=== PATIENT | female | born 1935 | race African-American/Black ===

== ENCOUNTER 2016-06-29 10:31 | Observation (INO) | payer MEDICARE ==
[~2016-06-29] VITALS: Ht 152.4 cm; Wt 65.0 kg
[2016-06-29] MEDS ORDERED: HEPARIN SODIUM - IV 10,000 UNITS/10 ML VIAL ONE ×3 (11:12→15:41)
[2016-06-29] MEDS ORDERED: RANI150T PO (11:21)
[2016-06-29] MEDS ORDERED: ZOCO40TA PO (11:21)
[2016-06-29] MEDS ORDERED: AMLO10TA2 PO (11:21)
[2016-06-29] MEDS ORDERED: CINA30 PO (11:21)
[2016-06-29] MEDS ORDERED: GLIP5TAB8 PO (11:21)
[2016-06-29] MEDS ORDERED: WARF-58 PO (11:21)
[2016-06-29] MEDS ORDERED: METO25TA3 PO (11:21)
[2016-06-29] MEDS ORDERED: CLON0.1T PO (11:21)
[2016-06-29] MEDS ORDERED: PROT40TA PO (11:21)
[2016-06-29] MEDS ORDERED: GABA100C4 PO (11:21)
[2016-06-29] MEDS ORDERED: LEVO100T5 PO (11:21)
[2016-06-29] MEDS ORDERED: FERR150C PO (11:21)
[2016-06-29 11:22] VITALS: BP 127/69; PULSE 62; RESP 18; TEMP 97.8; O2SAT 97
[2016-06-29] MEDS ORDERED: BUPIVACAINE/EPINEPHRINE 0.5% PF 30 ML VIAL ONE ×2 (11:25→12:21)
--- NOTE | 2016-06-29 11:43 | HHI.HP ---
History of Present Illness Chief Complaint: ESRD, need for HD access History of Present Illness 81 yo female with ESRD, need for HD access, currently getting HD via R chest catheter TTS. H/o L UE AVF that thrombosed and was never used. Has a history of CVA with R sided weakness but the patient has ability to perform many ADLs Past/Family/Social History Past Medical History HTN DM ESRD hypercholesterolemia Home Medications Reported Medications Warfarin 3 Mg Tab3.5 Mg PO DAILY #30 TAB Ref 0 06/29/16 Polysaccharide Iron Complex (Ferrex 150)150 Mg Cap1 Cap PO BID 06/29/16 Simvastatin (Zocor)40 Mg Tab40 Mg PO DAILY #30 TAB Ref 0 06/29/16 Ranitidine 150 Mg [id number] Mg PO BID #60 TAB Ref 0 06/29/16 Pantoprazole (Protonix)40 Mg Tab40 Mg PO DAILY #30 TAB Ref 0 06/29/16 Metoprolol Tartrate 25 Mg Tab25 Mg PO DAILY #30 TAB Ref 0 06/29/16 Levothyroxine 100 Mcg [id number] Mcg PO DAILY #30 TAB Ref 0 06/29/16 Glipizide 5 Mg Tab5 Mg PO BIDAC #60 TAB Ref 0 Take 30 minutes before a meal 06/29/16 Gabapentin 100 Mg [id number] Mg PO TID #90 CAP Ref 0 06/29/16 Clonidine 0.1 Mg Tab0.1 Mg PO TID #60 TAB Ref 0 06/29/16 Cinacalcet (Sensipar)30 Mg Tab40 Mg PO HS #30 TAB Ref 0 06/29/16 Amlodipine 10 Mg Tab10 Mg PO DAILY #30 TAB Ref 0 06/29/16 Coded Allergies: No Known Allergies (Unverified , 06/29/16) Review of Systems Constitutional: COMPLAINS OF: Weight gain, Dizziness, DENIES: Fever, Chills Ears, nose, mouth, throat: COMPLAINS OF: Nasal discharge Respiratory: DENIES: Shortness of breath Physical Exam Vitals/I&O Date Time Temp Pulse Resp B/P Pulse Ox O2 Delivery O2 Flow Rate FiO2 06/29/16 11:22 97.8 62 18 127/69 97 Neuro: conversant but somnolent HEENT: NC/AT Neck: no JVD Heart: reg rate, no M Lungs: clear B Abdomen: NT Vascular: R UE with palpable radial pulse Extremities: no incisions R UE Diminished ROM R UE from CVA, no acute change Assessment and Plan Plan ESRD, need for HD access plan R UE access, likely brach-ax Will admit post-op for HD tomorrow Regulo Ricks MD Jun 29, 2016 11:43
[2016-06-29] MEDS ORDERED: HYDROmorphone HCL 2 MG TAB PO PRN (11:45)
[2016-06-29 11:47] LABS: AUTOMATED NEUTROPHIL # 2.3 TH/MM3 (1.8-7.7); BASOPHIL % 0.3 % (0.0-2.0); EOSINOPHIL # 0.2 TH/MM3 (0-0.4); EOSINOPHIL % 4.7 % (0.0-4.0); HEMATOCRIT 30.6 % (35.0-46.0); HEMO FLAGS DIFF FINAL; LYMPH % 33.3 % (9.0-44.0); LYMPHOCYTE # 1.7 TH/MM3 (1.0-4.8); MEAN CELL VOLUME 89.5 FL (80.0-100.0); MEAN CORPUSCULAR HEMOGLOBIN 30.5 PG (27.0-34.0); MEAN CORPUSCULAR HGB CONC 34.1 % (32.0-36.0); MONO % 16.8 % (0.0-8.0); NEUT % 44.9 % (16.0-70.0); PLATELET COUNT 141 TH/MM3 (150-450); RED BLOOD COUNT 3.42 MIL/MM3 (4.00-5.30); RED CELL DISTRIBUTION WIDTH 15.2 % (11.6-17.2); WHITE BLOOD COUNT 5.1 TH/MM3 (4.0-11.0)
[2016-06-29 11:57] LABS: INTERNATIONAL NORMALIZED RATIO 1.1 RATIO
[2016-06-29] MEDS ORDERED: ONDANSETRON HCL 4 MG/2 ML VIAL IV PUSH ONE (12:00)
[2016-06-29] MEDS ORDERED: NEOSTIGMINE 3 MG/3 ML SYR IV ONE (12:00)
[2016-06-29] MEDS ORDERED: ePHEDrine/NS 25 MG/5 ML SYR IV ONE (12:00)
[2016-06-29] MEDS ORDERED: SODIUM CHLOR 0.9% 250 ML INJ 250 ML IV ONE (12:00)
[2016-06-29] MEDS ORDERED: PROTAMINE SULFATE 50 MG/5 ML VIAL IV ONE (12:00)
[2016-06-29] MEDS ORDERED: PROPOFOL 200 MG/20 ML AMP IV ONE (12:00)
[2016-06-29 12:06] LABS: BICARBONATE 29.9 MEQ/L (21.0-32.0); POTASSIUM 4.2 MEQ/L (3.5-5.1)
[2016-06-29] MEDS ORDERED: VANCOMYCIN HCL 1000 MG VIAL ONE (12:19)
--- NOTE | 2016-06-29 13:55 | HHI.PR ---
Immediate Post Op Note Procedure Date: Jun 29, 2016 Pre Op Diagnosis: ESRD, need for HD access Post Op Diagnosis: ESRD, need for HD access Surgeon: Regulo Ricks Automobile Upholsterer Apprentice(s): none Procedure: R brach-ax with Artegraft Findings: 3mm artery, 4mm vein Additional Information: + thrill in AVG and Doppler radial signal R UE after AVF creation Complications: none apparent Specimen(s) removed: none Estimated blood loss: 30mL Anesthesia: General Drains: None Fluids: 450 mL IVF Patient to: PACU Patient Condition: Good Implant/Devices: SEE IMPLANT LOG (if applicable) Date/Time of Procedure: SEE SURGICAL CARE RECORD Regulo Ricks MD Jun 29, 2016 13:55
[2016-06-29] MEDS: cloNIDine HCL 0.1 MG TAB PO SCH ×2 (14:00→18:05)
[2016-06-29] MEDS ORDERED: DO NOT ADM ANY ANTICOAGULANT DRUGS PRN (14:15)
[2016-06-29] MEDS: GABAPENTIN 100 MG CAP PO SCH (15:00)
[2016-06-29 18:00] VITALS: BP 108/73; PULSE 81; RESP 20; TEMP 96.1; O2SAT 94
[2016-06-29 19:22] VITALS: PULSE 76
[2016-06-29 20:00] VITALS: BP 108/63; PULSE 77; PULSE 78; RESP 16; TEMP 98.5; O2SAT 96
--- NOTE | 2016-06-29 20:17 | EKG ---
Date Performed: 06/29/2016 Time Performed: 11:29:13 PTAGE: 81 years EKG: Sinus rhythm WITH FIRST DEGREE AV BLOCK WITH OCCASIONAL ECTOPIC PREMATURE COMPLEXES NONSPECIFIC T-WAVE ABNORMALIT Y ABNORMAL ECG NO PREVIOUS TRACING DOCTOR: Cesar Almendarez Interpretating Date/Time 06/29/2016 20:16:38
[2016-06-29] MEDS: FAMOTIDINE 20 MG TAB PO SCH (20:27)
[2016-06-29] MEDS ORDERED: SODIUM CHLOR 0.9% 1000 ML INJ 1,000 ML IV PRN ×3 (20:42)
[2016-06-29] MEDS ORDERED: ACETAMINOPHEN 325 MG TAB PO PRN (20:45)
[2016-06-29] MEDS ORDERED: SODIUM CHLORIDE 0.9% FLUSH 10 ML FLUSH IV FLUSH PRN (20:45)
[2016-06-29] MEDS ORDERED: cloNIDine HCL 0.1 MG TAB PO PRN (20:45)
[2016-06-29] MEDS ORDERED: NITROGLYCERIN 0.4 MG SL 25 TABS/BTL SL PRN (20:45)
[2016-06-29] MEDS ORDERED: ALBUMIN HUMAN 25% 25 GM/100 ML BAGP IV PRN (20:45)
[2016-06-29] MEDS ORDERED: diphenhydrAMINE HCL 25 MG CAP PO PRN (20:45)
[2016-06-29] MEDS ORDERED: ONDANSETRON HCL 4 MG/2 ML VIAL IV PRN (20:45)
[2016-06-29] MEDS ORDERED: HEPARIN SODIUM - IV 10,000 UNITS/10 ML VIAL PRN (20:45)
[2016-06-29] MEDS ORDERED: GELATIN 12 MM/7 MM FOAM TOP PRN (20:45)
[2016-06-29] MEDS ORDERED: HEPARIN SODIUM - IV 10,000 UNITS/10 ML VIAL IVF PRN (20:45)
[2016-06-29] MEDS ORDERED: MANNITOL 12.5 GM/50 ML VIAL IV PRN (20:45)
[2016-06-29] MEDS ORDERED: GENTAMICIN SULFATE (DIALYSIS USE ONLY) 20 MG/2 ML VIAL IV PRN (20:45)
[2016-06-29] MEDS ORDERED: EPOETIN ALFA 10,000 UNITS/ML VIAL IV PRN (20:45)
[2016-06-29] MEDS ORDERED: CINACALCET HYDROCHLORIDE 30 MG TAB PO SCH (21:00)
[2016-06-30] VITALS: BP 100/55; PULSE 87; RESP 16; TEMP 99.9; O2SAT 97
[2016-06-30 04:00] VITALS: BP 112/57; PULSE 88; RESP 16; TEMP 99.5; O2SAT 96
[2016-06-30] MEDS ORDERED: LEVOTHYROXINE SODIUM 100 MCG TAB PO SCH (06:00)
--- NOTE | 2016-06-30 06:45 | MB ---
cc: SULEMA BENAVIDES MD DATE OF CONSULTATION 06/29/2016 REASON FOR CONSULTATION End-stage renal disease on hemodialysis, for management. HISTORY OF PRESENT ILLNESS This is a very pleasant 81-year-old female with past medical history of hypertension, cerebrovascular accident with right-sided weakness, history of end-stage renal disease on hemodialysis three times per week, hypothyroidism who was admitted for the creation of right arm A-V fistula. The patient has been on hemodialysis since July of last year and she is getting dialysis through the [facility]. She has been getting dialysis in [place] and following with Dr. Tristen Smalls. She came in here because for creation of right arm A-V fistula. She has right arm A-V graft and the surgery was done and she has right brachial-axillary A-V graft done. The patient denies any shortness of breath. She has mild pain at the site of surgery. No chest pain, no nausea or vomiting. PAST MEDICAL HISTORY 1. Hypertension. 2. Cerebrovascular accident. 3. Hypothyroidism. 4. End-stage renal disease on hemodialysis. PAST SURGICAL HISTORY Previous history of A-V fistula surgery. REVIEW OF SYSTEMS There is no history of fever. No sore throat. No headache, dizziness or blurring of vision. No shortness of breath or chest pain. No palpitation. No nausea or vomiting. SOCIAL HISTORY History is negative for smoking or alcoholism. FAMILY HISTORY Noncontributory. ALLERGIES She has no known drug allergies. MEDICATIONS CURRENTLY 1. Famotidine 10 mg b.i.d. 1. Glipizide 5 mg b.i.d. 2. Norvasc 10 mg once a day. 3. Neurontin 100 mg once a day. 4. Metoprolol 25 mg once a day. 5. Pravachol 80 mg daily. 6. Synthroid 100 mcg once per day. 7. Cinacalcet 30 mg q.h.s. 8. Heparin 5000 units subcu q. 8 hours. 9. Clonidine 0.1 mg t.i.d. 10. Roxicodone as needed. 11. Dilaudid as needed. PHYSICAL EXAMINATION GENERAL: The patient is awake, alert. She is not in acute distress. VITAL SIGNS: Last blood pressure 108/63. Her blood pressure has been on the lower side with systolic and the 90s. Temperature 98.5, oxygen saturation 96%. HEENT: Pupils equally reacting to light. Nonicteric sclerae. Conjunctivae normal. NECK: Supple. JVD is not elevated. LUNGS: The patient has bilateral good air entry with occasional wheezing. HEART: S1, S2. Regular rhythm. ABDOMEN: Distended, soft, lax. There is no tenderness. Bowel sounds positive. EXTREMITIES: There is no edema in the legs. The right upper arm has a good bruit. INVESTIGATIONS WBC count is 5.9, hemoglobin 10.4, platelet of 141. Sodium 142, potassium 4.2, chloride 104, bicarb 29.9, BUN 28, creatinine 5.1, glucose 125, calcium is 8.5. INR is 1.1. There is no imaging studies done. ASSESSMENT AND PLAN 1. Post right upper arm A-V graft. 2. Hypertension 3. End-stage renal disease on hemodialysis. 4. Anemia. 5. History of cerebrovascular accident. The patient had hemodialysis done yesterday. She is on regular dialysis on Tuesdays, and Saturdays. I will arrange for her hemodialysis in the morning and give her Epogen with the dialysis and remove around 2 liters. Post-dialysis if the patient is stable and agreed by Surgery, then she will be discharged and will follow with Dr. Tristen Smalls and continue to get the dialysis at her center. Thank you for the consultation. Sulema Benavides MD AQJ/ZAIRE /8:42 PM /6:29 AM
[2016-06-30] MEDS ORDERED: glipiZIDE 5 MG TAB PO SCH (07:00)
[2016-06-30 07:50] VITALS: BP 112/61; PULSE 80; RESP 20; TEMP 99.1; O2SAT 96
[2016-06-30 08:03] VITALS: PULSE 80
[2016-06-30 08:09] VITALS: O2SAT 94
[2016-06-30] MEDS: FAMOTIDINE 20 MG TAB PO SCH (09:00)
[2016-06-30] MEDS ORDERED: METOPROLOL TARTRATE 25 MG TAB PO SCH (09:00)
[2016-06-30] MEDS: GABAPENTIN 100 MG CAP PO SCH (09:00)
[2016-06-30] MEDS ORDERED: PRAVASTATIN SOD 80 MG TAB PO SCH (09:00)
[2016-06-30] MEDS: cloNIDine HCL 0.1 MG TAB PO SCH ×2 (09:00→13:00)
[2016-06-30] MEDS ORDERED: PANTOPRAZOLE SOD 40 MG DELAYED RELEASE TAB PO SCH (09:00)
[2016-06-30] MEDS ORDERED: PERC5TAB12 PO (09:16)
--- NOTE | 2016-06-30 09:24 | PD.VS.DC ---
Discharge Summary Admission Date: Jun 29, 2016 at 11:47 Discharge Date: Jun 30, 2016 Admission Diagnosis: (1) ESRD (end stage renal disease) Discharge Diagnosis: (1) ESRD (end stage renal disease) Status: Chronic Brief History from admission 81 yo female with ESRD, need for HD access, currently getting HD via R chest catheter TTS. H/o L UE AVF that thrombosed and was never used. Has a history of CVA with R sided weakness but the patient has ability to perform many ADLs Procedure(s): R brach-ax with Artegraft Significant Findings GENERAL: A&O, GCS15 SKIN: Warm and dry. Incision to RUE intact with surgical glue, slight swelling noted Upper arm, no drainage or redness. CARDIOVASCULAR: RRR, +S1,S2 RESPIRATORY: Breath sounds equal and clear bilaterally. No accessory muscle use. +thrill noted near AVF Bilat radial pulse strong and palpable Laboratory Tests Test 06/29/16 11:25 Red Blood Count 3.42 MIL/MM3 (4.00-5.30) Hemoglobin 10.4 GM/DL (11.6-15.3) Hematocrit 30.6 % (35.0-46.0) Platelet Count 141 TH/MM3 (150-450) Monocytes (%) (Auto) 16.8 % (0.0-8.0) Eosinophils (%) (Auto) 4.7 % (0.0-4.0) Prothrombin Time 12.0 SEC (9.8-11.6) Blood Urea Nitrogen 28 MG/DL (7-18) Creatinine 5.10 MG/DL (0.50-1.00) Estimat Glomerular Filtration 10 ML/MIN (>89) Rate Random Glucose 125 MG/DL (74-106) Hospital Course: 81 yo female with ESRD, need for HD access, currently getting HD via R chest catheter TTS. H/o L UE AVF that thrombosed and was never used. Has a history of CVA with R sided weakness but the patient has ability to perform many ADLs Was admitted for AVF creation Has done well post op with out complications will f/u in 3w in our OPC Discharge Condition: Good Discharge Disposition: Discharge Home Discharge Instructions: Call the office to report any new concerns Do not apply any creams or ointments to L AVF incision Johann wrap RUE while swelling present Stefania HO [facility]/[place] [phone] Any questions or concerns: Call [facility] Heart and Vascular Surgery at [facility] [phone] Stefania Roe Jun 30, 2016 09:24
--- NOTE | 2016-06-30 10:06 | PD.VS.PN ---
Subjective POD #: 1 Procedure(s): R brach-ax with Artegraft Subjective/Hospital Course doing well, arm discomfort appropriate and controlled with po meds in HD at present Objective Vitals/I&O Date Time Temp Pulse Resp B/P Pulse Ox O2 Delivery O2 Flow Rate FiO2 06/30/16 08:09 94 21 06/30/16 07:50 99.1 80 20 112/61 96 06/30/16 04:00 99.5 88 16 112/57 96 06/30/16 00:00 99.9 87 16 100/55 97 06/29/16 20:00 77 06/29/16 20:00 98.5 78 16 108/63 96 06/29/16 19:22 76 06/29/16 18:00 96.1 81 20 108/73 94 06/29/16 16:32 97.9 71 16 95/60 99 Nasal Cannula 2 06/29/16 15:45 75 16 93/66 95 Nasal Cannula 2 06/29/16 15:30 73 16 92/60 95 Nasal Cannula 2 06/29/16 15:15 74 16 95/56 97 Nasal Cannula 2 06/29/16 15:00 77 16 91/64 96 Nasal Cannula 2 06/29/16 14:45 77 16 94/57 94 Nasal Cannula 2 06/29/16 14:30 81 16 106/65 95 Nasal Cannula 2 06/29/16 14:15 98.0 92 16 116/66 96 Nasal Cannula 2 06/29/16 11:22 97.8 62 18 127/69 97 Exam: R UE swollen but no hematomas + thrill + Dopper signal in wrist Laboratory Laboratory Tests Test 06/29/16 11:25 White Blood Count 5.1 Red Blood Count 3.42 Hemoglobin 10.4 Hematocrit 30.6 Mean Corpuscular Volume 89.5 Mean Corpuscular Hemoglobin 30.5 Mean Corpuscular Hemoglobin 34.1 Concent Red Cell Distribution Width 15.2 Platelet Count 141 Mean Platelet Volume 9.2 Neutrophils (%) (Auto) 44.9 Lymphocytes (%) (Auto) 33.3 Monocytes (%) (Auto) 16.8 Eosinophils (%) (Auto) 4.7 Basophils (%) (Auto) 0.3 Neutrophils # (Auto) 2.3 Lymphocytes # (Auto) 1.7 Monocytes # (Auto) 0.9 Eosinophils # (Auto) 0.2 Basophils # (Auto) 0.0 CBC Comment DIFF FINAL Differential Comment Prothrombin Time 12.0 Prothromb Time International 1.1 Ratio Sodium Level 142 Potassium Level 4.2 Chloride Level 104 Carbon Dioxide Level 29.9 Anion Gap 8 Blood Urea Nitrogen 28 Creatinine 5.10 Estimat Glomerular Filtration 10 Rate Random Glucose 125 Calcium Level 8.6 Blood Type O POSITIVE Antibody Screen NEGATIVE Blood Bank Comment Assessment and Plan Assessment: (1) ESRD (end stage renal disease) Status: Chronic Plan D/C after HD Ok to ÁNGELA wrap arm for comfort Will maty f/u in 1 week to re-assess swelling Regulo Ricks MD Jun 30, 2016 10:06
[2016-06-30 10:21] LABS: HEMATOCRIT 28.7 % (35.0-46.0); MEAN CELL VOLUME 90.2 FL (80.0-100.0); MEAN CORPUSCULAR HEMOGLOBIN 30.2 PG (27.0-34.0); MEAN CORPUSCULAR HGB CONC 33.5 % (32.0-36.0); PLATELET COUNT 118 TH/MM3 (150-450); RED BLOOD COUNT 3.18 MIL/MM3 (4.00-5.30); RED CELL DISTRIBUTION WIDTH 15.4 % (11.6-17.2); REVIEW FLAG FINAL; WHITE BLOOD COUNT 6.6 TH/MM3 (4.0-11.0)
[2016-06-30 10:55] LABS: BICARBONATE 28.1 MEQ/L (21.0-32.0); POTASSIUM 4.3 MEQ/L (3.5-5.1)
[2016-06-30 12:50] VITALS: BP 113/66; PULSE 101; RESP 20; TEMP 98.4; O2SAT 94
[2016-06-30] MEDS ORDERED: HEPARIN SODIUM - SQ 10,000 UNITS/ML VIAL SQ SCH (13:00)
--- NOTE | 2016-07-01 07:20 | MP ---
cc: REGULO RICKS MD DATE OF SURGERY 06/29/2016 PREOPERATIVE DIAGNOSIS End-stage renal disease needs dialysis access. POSTOPERATIVE DIAGNOSIS End-stage renal disease needs dialysis access. PROCEDURE Right brachial artery axillary vein arteriovenous graft with Artegraft (bovine pericardium). ATTENDING SURGEON Regulo Ricks MD ANESTHESIA General INDICATIONS Mrs. Hernadez is an 81 year-old lady who has end-stage renal disease currently dialyzing Monday, and Saturdays right tunnel and chest catheter. She has a previous left upper extremity access and no remaining suitable autogenous options. She is taken to the operating room for access creation because of the patient's contracture and thin skin. We would like to place a bovine carotid graft. DESCRIPTION OF PROCEDURE Informed consent was obtained from the patient. She was taken to the operating room, placed supine on the operating room table and appropriate time out was taken to ensure the patient's operative site and planned procedure. A gram of Vancomycin was initiated prior to the skin incision and will be discontinued after a single preop dose. Vancomycin was chosen because of the patient's end-stage renal disease. Everyone in the room agreed with the time out and we proceeded. An incision was made in the antecubital area, carried down through the subcutaneous tissue with electrocautery. The brachial artery was identified and dissected free for several centimeters. A separate incision was made in the axilla, carried down through the subcutaneous tissue with electrocautery. The axillary vein was identified and dissected free for several centimeters. A tunnel was then created between these two in a curved fashion and extending on the anterior surface of the upper arm. The Artegraft had been prepared in the standard fashion. It was flushed and marked for orientation and passed through the tunnel without difficulty. The patient was systemically heparinized with 3000 units of IV Heparin. Proximal and distal control of the brachial artery was obtained with profunda clamps and a longitudinal arteriotomy was made with an 11 blade and extended with [place] scissors. The Artegraft was cut to appropriate length, spatulated and sewn end-to-side with running 6-0 Prolene suture. At the conclusion, this was flushed and noted to be hemostatic. A clamp was placed was placed on the graft and the vein was controlled proximally and distally with Profunda clamps and a longitudinal venotomy was made with an 11 blade and extended with [place] scissors. The vein was spatulated and sewn end-to-side with running 5-0 Prolene suture. At the completion, it was flushed and noted to be hemostatic. The clamps were all released. There was a nice thrill in the fistula and a Doppler signal at rest. The heparin reversed with Protamine and the wounds were infiltrated with 0.5% Marcaine with epinephrine and then closed with 2-0 Polysorb, 3-0 Polysorb and 4-0 Monocryl. The sponge and needle counts were correct at the end of the case. I was present and scrubbed for the entire procedure. MD JONEL Arauz/KHALIF /1:59 PM /6:52 AM
== END 2016-06-30 14:07 | disposition home or self-care (01) ==
LOC: HSDC 10:31 → HSDI 11:47 → HOCA 17:54
PROVIDERS: ADMIT Surgery; ATTEND Surgery
DX: N18.6 End stage renal disease (principal); E11.22 Type 2 diabetes mellitus with diabetic chronic kidney disease; I12.0 Hypertensive chronic kidney disease with stage 5 chronic kidney disease or end stage renal disease; Z99.2 Dependence on renal dialysis; E03.9 Hypothyroidism, unspecified; D64.9 Anemia, unspecified; I44.0 Atrioventricular block, first degree
CPT/HCPCS: 01844; 36821; 76937; 80048; 85025; 85027; 85610; 86850; 86900; 86901; 93005; 96374; 96375; G0257; G0378; J1644; J2405; J2710; J2720; J3010; J3370; J7050; 90935

== ENCOUNTER 2016-10-10 10:48 | Day surgery (SDC) | payer MEDICARE ==
[~2016-10-10] VITALS: Ht 154.9 cm; Wt 64.5 kg
[~2016-10-10 10:48] MED LIST: AMLO10TA2 PO; CINA30 PO; CLON0.1T PO; FERR150C PO; GABA100C4 PO; GLIP5TAB8 PO; LEVO100T5 PO; METO25TA3 PO; PERC5TAB12 PO; PROT40TA PO; RANI150T PO; WARF-58 PO; ZOCO40TA PO
[2016-10-10] MEDS ORDERED: SODIUM CHLORIDE 0.9% FLUSH 10 ML FLUSH IV FLUSH PRN ×2 (11:30)
[2016-10-10] MEDS ORDERED: SODIUM CHLOR 0.9% 1000 ML INJ 1,000 ML IV SCH (12:00)
[2016-10-10 13:02] LABS: AUTOMATED NEUTROPHIL # 4.1 TH/MM3 (1.8-7.7); BASOPHIL % 0.4 % (0.0-2.0); EOSINOPHIL # 0.3 TH/MM3 (0-0.4); EOSINOPHIL % 3.9 % (0.0-4.0); HEMATOCRIT 34.8 % (35.0-46.0); LYMPH % 31.7 % (9.0-44.0); LYMPHOCYTE # 2.4 TH/MM3 (1.0-4.8); MEAN CELL VOLUME 91.9 FL (80.0-100.0); MEAN CORPUSCULAR HEMOGLOBIN 30.6 PG (27.0-34.0); MEAN CORPUSCULAR HGB CONC 33.3 % (32.0-36.0); MONO % 9.5 % (0.0-8.0); NEUT % 54.5 % (16.0-70.0); PLATELET COUNT 178 TH/MM3 (150-450); RED BLOOD COUNT 3.79 MIL/MM3 (4.00-5.30); RED CELL DISTRIBUTION WIDTH 16.1 % (11.6-17.2); WHITE BLOOD COUNT 7.5 TH/MM3 (4.0-11.0)
[2016-10-10 13:14] LABS: HEMO FLAGS AUTO DIFF
[2016-10-10 13:15] LABS: SCAN/DIFF AUTO DIFF CONFIRMED
[2016-10-10 13:21] LABS: ANION GAP 10 MEQ/L (5-15); AST (GOT) 17 U/L (15-37); BICARBONATE 24.8 MEQ/L (21.0-32.0); BLOOD UREA NITROGEN 41 MG/DL (7-18); CHLORIDE 104 MEQ/L (98-107); GLOMERULAR FILTRATION RATE 10 ML/MIN (>89); POTASSIUM 4.1 MEQ/L (3.5-5.1); SODIUM (NA) 139 MEQ/L (136-145)
[2016-10-10 13:25] LABS: ALKALINE PHOSPHATASE 128 U/L (45-117); ALT (GPT) 25 U/L (10-53); TOTAL BILIRUBIN ADULT 0.6 MG/DL (0.2-1.0)
--- NOTE | 2016-10-10 15:39 | HHI.HP ---
History of Present Illness Chief Complaint: R arm swelling History of Present Illness 81 yo female with ESRD, s/p R UE AVG with bovine pericardium and now with R arm swelling AVG works well for HD Had R catheter removed Past/Family/Social History Past Medical History ESRD HTN CVA DM XOL thyroid dz Past Surgical History AVG 06/29/16 Social History nonsmoker Family History [place] Home Medications Active Scripts Oxycodone-Acetaminophen (Percocet)5-325 mg Tab1 Tab PO Q6H PRN (PAIN) #20 TAB Ref 0 Prov:BhupinderStefania Gilmer SURVEY CREW CHIEF 06/30/16 Reported Medications Warfarin 3 Mg Tab3.5 Mg PO DAILY #30 TAB Ref 0 06/29/16 Polysaccharide Iron Complex (Ferrex 150)150 Mg Cap1 Cap PO BID 06/29/16 Simvastatin (Zocor)40 Mg Tab40 Mg PO DAILY #30 TAB Ref 0 06/29/16 Ranitidine 150 Mg Lcj050 Mg PO BID #60 TAB Ref 0 06/29/16 Pantoprazole (Protonix)40 Mg Tab40 Mg PO DAILY #30 TAB Ref 0 06/29/16 Metoprolol Tartrate 25 Mg Tab25 Mg PO DAILY #30 TAB Ref 0 06/29/16 Levothyroxine 100 Mcg [id number] Mcg PO DAILY #30 TAB Ref 0 06/29/16 Glipizide 5 Mg Tab5 Mg PO BIDAC #60 TAB Ref 0 Take 30 minutes before a meal 06/29/16 Gabapentin 100 Mg Orj282 Mg PO TID #90 CAP Ref 0 06/29/16 Cinacalcet (Sensipar)30 Mg Tab40 Mg PO HS #30 TAB Ref 0 06/29/16 Amlodipine 10 Mg Tab10 Mg PO DAILY #30 TAB Ref 0 06/29/16 Discontinued Reported Medications Clonidine 0.1 Mg Tab0.1 Mg PO TID #60 TAB Ref 0 06/29/16 Coded Allergies: No Known Allergies (Unverified , 06/29/16) Review of Systems ROS Limitations: Altered Mental Status Physical Exam Neuro: alert, somnolent but baseline R arm contracted, baseline HEENT: NC/AT Neck: no JVD Heart: reg rate Lungs: clear Abdomen: NT Vascular: R UE with + thrill and marked swelling Laboratory Tests Test 10/10/16 12:10 White Blood Count 7.5 Red Blood Count 3.79 Hemoglobin 11.6 Hematocrit 34.8 Mean Corpuscular Volume 91.9 Mean Corpuscular Hemoglobin 30.6 Mean Corpuscular Hemoglobin 33.3 Concent Red Cell Distribution Width 16.1 Platelet Count 178 Mean Platelet Volume 9.5 Neutrophils (%) (Auto) 54.5 Lymphocytes (%) (Auto) 31.7 Monocytes (%) (Auto) 9.5 Eosinophils (%) (Auto) 3.9 Basophils (%) (Auto) 0.4 Neutrophils # (Auto) 4.1 Lymphocytes # (Auto) 2.4 Monocytes # (Auto) 0.7 Eosinophils # (Auto) 0.3 Basophils # (Auto) 0.0 CBC Comment AUTO DIFF Differential Comment AUTO DIFF CONFIRMED Sodium Level 139 Potassium Level 4.1 Chloride Level 104 Carbon Dioxide Level 24.8 Anion Gap 10 Blood Urea Nitrogen 41 Creatinine 4.90 Estimat Glomerular Filtration 10 Rate Random Glucose 90 Calcium Level 9.3 Total Bilirubin 0.6 Aspartate Amino Transf 17 (AST/SGOT) Alanine Aminotransferase 25 (ALT/SGPT) Alkaline Phosphatase 128 Total Protein 7.4 Albumin 3.7 Assessment and Plan Plan R UE fistulogram and potential intervention Discussed with patient and daughter, agree with plan Regulo Ricks MD Oct 10, 2016 15:39
[2016-10-10] MEDS ORDERED: HEPARIN SODIUM - IV 10,000 UNITS/10 ML VIAL ONE (15:56)
--- NOTE | 2016-10-10 17:11 | HHI.PR ---
Immediate Post Op Note Procedure Date: Oct 10, 2016 Pre Op Diagnosis: R UE venous outflow stenosis Post Op Diagnosis: R UE venous outflow occlusion Surgeon: Regulo Ricks Linux Kernel Engineer(s): none Procedure: R UE fistulogram Findings: axillary vein occlusion Additional Information: no intervention performed Complications: none apparent Specimen(s) removed: none Estimated blood loss: 10mL Anesthesia: Other (none) Drains: None Patient to: Other (DOCU) Patient Condition: Good Date/Time of Procedure: SEE SURGICAL CARE RECORD Regulo Ricks MD Oct 10, 2016 17:11
[2016-10-10] MEDS ORDERED: IOHEXOL 350 MG/ML 100 ML BTL (for RAD DIAG) OTHER ONE (18:12)
--- NOTE | 2016-10-11 12:26 | MP ---
cc: REGULO RICKS MD DATE OF SURGERY: 10/11/2016 PREOPERATIVE DIAGNOSIS: Right upper extremity swelling, arteriovenous graft that is patent. POSTOPERATIVE DIAGNOSIS Right upper extremity swelling, arteriovenous graft that is patent. PROCEDURE Right upper right extremity fistulogram. SURGEON: Regulo Ricks MD. RN OPERATING ROOM: None. ANESTHESIA None. INDICATIONS Mrs. Hernadez is an 81 year old lady with a right upper extremity arteriovenous graft. She has arm swelling and has no problem using dialysis graft and she is taken to the operating room for a fistulogram potential endovascular intervention. DESCRIPTION Informed consent obtained from the patient. She was taken to the operating room and placed supine on the operating room table and an appropriate time out was taken, to ensure the patient denies any operative complaints at time of procedure. Antibiotics not necessary as this is a clean procedure without an implantation of any foreign object. Everyone in the room agreed to time out, we proceeded. Her right arm was prepped and draped and locally anesthetized with 1% lidocaine and 21 gauge micropuncture needle was used to access the fistula which was exchanged using Seldinger technique micropuncture sheath, which a fistulogram was obtained. A 0.025 Glidewire was introduced and the micropuncture sheath was obtained for a 4-Setswana sheath and then the glide an Berenstein catheter were used to attempt to recannulize the occluded axillary vein but these were all unsuccessful, we even tried to place a 6-Setswana, 25 cm sheath as back support, this was also unsuccessful. The wire and catheter sheath were removed. The area was held for hemostasis with the aide of a single 4-0 Prolene suture. There are no complications. I was present and scrubbed for the entire procedure. INTERPRETATION: The patient has a patent fistula with occluded axillary vein. The fistula fills the retrograde filling down the peripheral axillary vein and then collaterals reconstitute central veins. MD JONEL Arauz/kesha /5:27 PM /12:16 PM
== END 2016-10-10 18:39 | disposition home or self-care (01) ==
LOC: HCVO 10:48 → HDIC 10:50 → HCVO 18:39
PROVIDERS: ATTEND Surgery
DX: T82.848A Pain due to vascular prosthetic devices, implants and grafts, initial encounter (principal); I77.1 Stricture of artery; I12.0 Hypertensive chronic kidney disease with stage 5 chronic kidney disease or end stage renal disease; E11.22 Type 2 diabetes mellitus with diabetic chronic kidney disease; N18.6 End stage renal disease; Z79.01 Long term (current) use of anticoagulants; Z86.73 Personal history of transient ischemic attack (TIA), and cerebral infarction without residual deficits; Z99.2 Dependence on renal dialysis
CPT/HCPCS: 01916; 36901; 76937; 80053; 85025; C1769; C1893; J1644; J3010; Q9967; 75820

== ENCOUNTER 2016-10-11 12:57 | Inpatient (IN) | payer MEDICARE ==
[~2016-10-11] VITALS: Ht 154.9 cm; Wt 61.4 kg
[~2016-10-11 12:57] MED LIST changes: -CLON0.1T PO
[2016-10-17] MEDS ORDERED: CLON0.1T PO (11:52)
[2016-10-17] MEDS ORDERED: FOLI800T PO (11:52)
[2016-10-17 11:55] VITALS: BP 121/65; PULSE 62; RESP 16; TEMP 97; O2SAT 97
[2016-10-17] MEDS ORDERED: LACTATED RINGER'S 1000 ML IV PRN (12:00)
[2016-10-17] MEDS ORDERED: CHLORHEXIDINE GLUCONATE 2 % 1 PACK (2 CLOTHS) TOPICAL PRN (12:00)
[2016-10-17] MEDS ORDERED: PROPOFOL 200 MG/20 ML AMP IV ONE (12:00)
[2016-10-17] MEDS ORDERED: PHENYLEPH/NS 1000 MCG/10 ML SYR IV ONE (12:00)
[2016-10-17] MEDS ORDERED: INSULIN HUMAN REGULAR 1,000 UNITS/10 ML VIAL SQ PRN (12:00)
[2016-10-17] MEDS ORDERED: PROTAMINE SULFATE 50 MG/5 ML VIAL IV ONE (12:00)
[2016-10-17] MEDS ORDERED: CISATRACURIUM BESYLATE 20 MG/10 ML VIAL IV ONE (12:00)
[2016-10-17] MEDS ORDERED: SODIUM CHLOR 0.9% 250 ML INJ 250 ML IV ONE (12:00)
[2016-10-17] MEDS ORDERED: POVIDONE IODINE 5% (ANTISEPSIS KIT) 4 APPLICATIONS EACH NARE PRN (12:00)
[2016-10-17] MEDS ORDERED: SODIUM CHLORID 0.9% 500 ML IV PRN (12:00)
[2016-10-17] MEDS ORDERED: METOPROLOL TARTRATE 25 MG TAB PO PRN (12:00)
--- NOTE | 2016-10-17 12:33 | HHI.HP ---
History of Present Illness Chief Complaint: Swollen R UE History of Present Illness 81 yo female with ESRD, s/p R UE brach-ax with bovine pericardium. C/o debilitating arm swelling and a recent fistulogram showed axillary vein occlusion, not amenable to endovascular therapy. Past/Family/Social History Past Medical History ESRD CVOD w CVA with R UE dysfunction DM XOL HTN thyroid dz Past Surgical History R UE access Social History lives with daughter HD TTS, last on Sat Family History NC Home Medications Active Scripts Oxycodone-Acetaminophen (Percocet)5-325 mg Tab1 Tab PO Q6H PRN (PAIN) #20 TAB Ref 0 Prov:Stefania Roe LARD MIXER 06/30/16 Reported Medications Clonidine 0.1 Mg Tab0.1 Mg PO BID #60 TAB Ref 0 10/17/16 Folic Acid 800 Mcg [id number] Mcg PO DAILY Ref 0 10/17/16 Warfarin 3 Mg Tab3.5 Mg PO DAILY #30 TAB Ref 0 06/29/16 Polysaccharide Iron Complex (Ferrex 150)150 Mg Cap1 Cap PO BID 06/29/16 Simvastatin (Zocor)40 Mg Tab40 Mg PO DAILY #30 TAB Ref 0 06/29/16 Ranitidine 150 Mg [id number] Mg PO BID #60 TAB Ref 0 06/29/16 Metoprolol Tartrate 25 Mg Tab25 Mg PO DAILY #30 TAB Ref 0 06/29/16 Levothyroxine 100 Mcg [id number] Mcg PO DAILY #30 TAB Ref 0 06/29/16 Glipizide 5 Mg Tab5 Mg PO BIDAC #60 TAB Ref 0 Take 30 minutes before a meal 06/29/16 Gabapentin 100 Mg [id number] Mg PO DAILY #90 CAP Ref 0 06/29/16 Cinacalcet (Sensipar)30 Mg Tab40 Mg PO HS #30 TAB Ref 0 06/29/16 Amlodipine 10 Mg Tab10 Mg PO DAILY #30 TAB Ref 0 06/29/16 Discontinued Reported Medications Pantoprazole (Protonix)40 Mg Tab40 Mg PO DAILY #30 TAB Ref 0 06/29/16 Clonidine 0.1 Mg Tab0.1 Mg PO TID #60 TAB Ref 0 06/29/16 Coded Allergies: No Known Allergies (Unverified , 10/17/16) Review of Systems Constitutional: DENIES: Fever, Chills Physical Exam Vitals/I&O Date Time Temp Pulse Resp B/P Pulse Ox O2 Delivery O2 Flow Rate FiO2 10/17/16 11:55 97.0 62 16 121/65 97 Neuro: alert, oriented HEENT: NC/AT; anicteric sclera Neck: no JVD Heart: reg rate, no M Lungs: clear B Abdomen: NT Vascular: R UE edematous with AVF and + thrill Assessment and Plan Plan R UE access revision - interposition with PTFE discussed with patient and daughter (Ms. Arellano [phone]) and they understand. To OR Regulo Ricks MD Oct 17, 2016 12:33
[2016-10-17] MEDS ORDERED: DEXTROSE 50% IN WATER 50 ML VIAL(D50) IV PRN (12:45)
[2016-10-17] MEDS ORDERED: HYDROmorphone HCL 2 MG TAB PO PRN (12:45)
[2016-10-17] MEDS ORDERED: GLUCAGON 1 MG/ML VIAL OTHER PRN (12:45)
[2016-10-17] MEDS ORDERED: HEPARIN SODIUM - IV 10,000 UNITS/10 ML VIAL ONE ×2 (12:57→14:00)
[2016-10-17] MEDS ORDERED: THROMBIN (TOPICAL) 20,000 UNIT SPRAY KIT ONE (12:58)
[2016-10-17] MEDS ORDERED: VANCOMYCIN HCL 1000 MG VIAL ONE (12:58)
[2016-10-17 13:41] LABS: AUTOMATED NEUTROPHIL # 2.1 TH/MM3 (1.8-7.7); BASOPHIL % 0.7 % (0.0-2.0); EOSINOPHIL # 0.2 TH/MM3 (0-0.4); EOSINOPHIL % 4.5 % (0.0-4.0); HEMO FLAGS DIFF FINAL; LYMPH % 37.4 % (9.0-44.0); LYMPHOCYTE # 1.8 TH/MM3 (1.0-4.8); MEAN CELL VOLUME 91.6 FL (80.0-100.0); MEAN CORPUSCULAR HEMOGLOBIN 30.6 PG (27.0-34.0); MEAN CORPUSCULAR HGB CONC 33.4 % (32.0-36.0); MONO % 12.6 % (0.0-8.0); NEUT % 44.8 % (16.0-70.0); PLATELET COUNT 209 TH/MM3 (150-450); RED BLOOD COUNT 3.71 MIL/MM3 (4.00-5.30); WHITE BLOOD COUNT 4.8 TH/MM3 (4.0-11.0)
[2016-10-17 13:47] LABS: BICARBONATE 26.7 MEQ/L (21.0-32.0); POTASSIUM 3.6 MEQ/L (3.5-5.1)
[2016-10-17 13:52] LABS: INTERNATIONAL NORMALIZED RATIO 1.1 RATIO; PROTHROMBIN TIME - PATIENT 11.7 SEC (9.8-11.6)
[2016-10-17] MEDS ORDERED: PILL SPLITTER OTHER PRN (14:15)
[2016-10-17] MEDS ORDERED: BUPIVACAINE HCL PF 0.5% 30 ML VIAL ONE (14:33)
--- NOTE | 2016-10-17 15:16 | HHI.PR ---
Immediate Post Op Note Procedure Date: Oct 17, 2016 Pre Op Diagnosis: failing R UE AVF, central vein occlusion Post Op Diagnosis: failing R UE AVF, central vein occlusion Surgeon: Regulo Ricks Dough Scaler And Mixer(s): Jony Samayoa Procedure: R axillary vein to subclavian vein bypass (ringed 8mm PTFE) Findings: good thrill at conclusion + Doppler signal at end of case Complications: none apparent Specimen(s) removed: none Estimated blood loss: 50mL Anesthesia: General Drains: None Fluids: 250mL Patient to: PACU Patient Condition: Good Date/Time of Procedure: SEE SURGICAL CARE RECORD Regulo Ricks MD Oct 17, 2016 15:16
[2016-10-17] MEDS ORDERED: DO NOT ADM ANY ANTICOAGULANT DRUGS PRN (15:24)
[2016-10-17] MEDS ORDERED: *morphine SULFATE 8 MG/ML PERIprocedure ONLY ONE ×2 (15:26→15:42)
[2016-10-17] MEDS: INSULIN ASPART SUPPLEMENTAL SCALE SQ SCH ×2 (15:48→20:28)
--- NOTE | 2016-10-17 16:38 | RADRPT ---
EXAM DATE/TIME: 10/17/2016 15:36 [place] COMPARISON: No previous studies available for comparison. INDICATIONS : Left central line placement. MEDICAL HISTORY : None. SURGICAL HISTORY : None. ENCOUNTER: Initial ACUITY: 1 day PAIN SCORE: Non-responsive. LOCATION: Bilateral chest FINDINGS: A left neck central line is present which distends across the chest and then projects upward toward t he right clavicle, presumably within the right brachiocephalic vein. There is no evidence of pneumoth orax or other complication of placement. There is some linear rectal opacity in the left superhilar r egion and medial left apex is likely chronic. Minimal basilar parenchymal opacity may be some atelect asis. Cardiomediastinal contours are satisfactory. CONCLUSION: Malpositioned central line. No evidence of pneumothorax. Danny Nieto MD on October 17, 2016 at 16:35 Board Certified Radiologist. This report was verified electronically.
--- NOTE | 2016-10-17 18:11 | RADRPT ---
EXAM DATE/TIME: 10/17/2016 17:30 [place] COMPARISON: CHEST SINGLE AP, October 17, 2016, 15:36. INDICATIONS : Repositioning of central line. MEDICAL HISTORY : None. SURGICAL HISTORY : None. ENCOUNTER: Subsequent ACUITY: 1 day PAIN SCORE: Non-responsive. LOCATION: Bilateral chest FINDINGS: Heart size visualized. Tortuous aorta. No consolidation or effusion. No pneumothorax. CONCLUSION: 1. Cardiomegaly. Minimal basal atelectasis. Left central line tip in superior vena cava. Kleber Gavin MD on October 17, 2016 at 18:08 Board Certified Radiologist. This report was verified electronically.
[2016-10-17] MEDS ORDERED: SODIUM CHLOR 0.9% 1000 ML INJ 1,000 ML IV PRN ×3 (18:14)
[2016-10-17] MEDS ORDERED: ONDANSETRON HCL 4 MG/2 ML VIAL IV PRN (18:15)
[2016-10-17] MEDS ORDERED: MANNITOL 12.5 GM/50 ML VIAL IV PRN (18:15)
[2016-10-17] MEDS ORDERED: GELATIN 12 MM/7 MM FOAM TOP PRN (18:15)
[2016-10-17] MEDS ORDERED: NITROGLYCERIN 0.4 MG SL 25 TABS/BTL SL PRN (18:15)
[2016-10-17] MEDS ORDERED: SODIUM CHLORIDE 0.9% FLUSH 10 ML FLUSH IV FLUSH PRN (18:15)
[2016-10-17] MEDS ORDERED: diphenhydrAMINE HCL 25 MG CAP PO PRN (18:15)
[2016-10-17] MEDS ORDERED: EPOETIN ALFA 10,000 UNITS/ML VIAL IV PRN (18:15)
[2016-10-17] MEDS ORDERED: ALBUMIN HUMAN 25% 25 GM/100 ML BAGP IV PRN (18:15)
[2016-10-17] MEDS ORDERED: GENTAMICIN SULFATE (DIALYSIS USE ONLY) 20 MG/2 ML VIAL IV PRN (18:15)
[2016-10-17] MEDS ORDERED: HEPARIN SODIUM - IV 10,000 UNITS/10 ML VIAL IVF PRN (18:15)
[2016-10-17] MEDS ORDERED: ACETAMINOPHEN 325 MG TAB PO PRN (18:15)
[2016-10-17] MEDS ORDERED: cloNIDine HCL 0.1 MG TAB PO PRN (18:15)
[2016-10-17] MEDS ORDERED: HEPARIN SODIUM - IV 10,000 UNITS/10 ML VIAL PRN (18:15)
[2016-10-17 18:54] LABS: BICARBONATE 22.3 MEQ/L (21.0-32.0); POTASSIUM 3.8 MEQ/L (3.5-5.1)
[2016-10-17] MEDS: MORPHINE SULFATE 4 MG/ML INJ IV PRN (19:40)
[2016-10-17] MEDS: FAMOTIDINE 20 MG TAB PO SCH (20:27)
[2016-10-17] MEDS: cloNIDine HCL 0.1 MG TAB PO SCH (20:27)
[2016-10-17] MEDS: CINACALCET HYDROCHLORIDE 30 MG TAB PO SCH (20:27)
[2016-10-18] VITALS (14 sets, daily range): BP systolic 125–134; BP diastolic 68–87; PULSE 74–100; RESP 16–18; TEMP 98.5–99.5; O2SAT 93–97
[2016-10-18] MEDS: MORPHINE SULFATE 4 MG/ML INJ IV PRN ×2 (02:48→17:04)
--- NOTE | 2016-10-18 06:59 | PD.VS.PN ---
Subjective POD #: 1 Procedure(s): R axillary-subclavian vein bypass with 8mm PTFE Subjective/Hospital Course c/o pain in upper chest near incision but tolerable R UE less swollen already Objective Vitals/I&O Date Time Temp Pulse Resp B/P Pulse Ox O2 Delivery O2 Flow Rate FiO2 10/18/16 04:00 66 17 130/61 96 Room Air 10/18/16 00:00 67 17 130/76 98 Room Air 10/17/16 20:13 20 10/17/16 20:00 63 13 140/63 98 Room Air 10/17/16 19:00 61 21 136/63 94 Room Air 10/17/16 18:00 63 21 137/63 98 Room Air 10/17/16 17:00 62 13 130/60 100 Nasal Cannula 2 10/17/16 16:15 59 13 124/59 99 Nasal Cannula 2 10/17/16 16:00 60 13 127/62 100 Nasal Cannula 2 10/17/16 15:45 65 23 139/72 100 Nasal Cannula 2 10/17/16 15:30 74 15 138/72 100 Nasal Cannula 2 10/17/16 15:27 98.1 77 25 140/76 100 Nasal Cannula 4 10/17/16 11:55 97.0 62 16 121/65 97 Exam: incision dressings c/d/i + thrill R UE less swollen and hand definition returning Laboratory Laboratory Tests Test 10/17/16 10/17/16 13:11 18:23 White Blood Count 4.8 Red Blood Count 3.71 Hemoglobin 11.3 Hematocrit 34.0 Mean Corpuscular Volume 91.6 Mean Corpuscular Hemoglobin 30.6 Mean Corpuscular Hemoglobin 33.4 Concent Red Cell Distribution Width 16.0 Platelet Count 209 Mean Platelet Volume 8.4 Neutrophils (%) (Auto) 44.8 Lymphocytes (%) (Auto) 37.4 Monocytes (%) (Auto) 12.6 Eosinophils (%) (Auto) 4.5 Basophils (%) (Auto) 0.7 Neutrophils # (Auto) 2.1 Lymphocytes # (Auto) 1.8 Monocytes # (Auto) 0.6 Eosinophils # (Auto) 0.2 Basophils # (Auto) 0.0 CBC Comment DIFF FINAL Differential Comment Prothrombin Time 11.7 Prothromb Time International 1.1 Ratio Sodium Level 139 140 Potassium Level 3.6 3.8 Chloride Level 103 105 Carbon Dioxide Level 26.7 22.3 Anion Gap 9 13 Blood Urea Nitrogen 28 28 Creatinine 4.91 4.98 Estimat Glomerular Filtration 10 10 Rate Random Glucose 98 132 Calcium Level 8.7 8.5 Blood Type O POSITIVE Antibody Screen NEGATIVE Assessment and Plan Plan POD#1 s/p central vein bypass; patent and pt looks great 1. HD today per nephrology 2. D/C L IJ CVL 3. f/u labs 4. d/c likely tomorrow morning Discharge Planning tomorrow (POD#2) Regulo Ricks MD Oct 18, 2016 06:58
[2016-10-18] MEDS: INSULIN ASPART SUPPLEMENTAL SCALE SQ SCH ×4 (07:45→21:00)
[2016-10-18] MEDS: METOPROLOL TARTRATE 25 MG TAB PO SCH (09:00)
[2016-10-18] MEDS: GABAPENTIN 100 MG CAP PO SCH (09:00)
[2016-10-18] MEDS: cloNIDine HCL 0.1 MG TAB PO SCH ×2 (09:00→21:00)
[2016-10-18] MEDS: PRAVASTATIN SOD 80 MG TAB PO SCH (09:00)
--- NOTE | 2016-10-18 09:36 | MB ---
cc: PURA BENAVIDES MD DATE OF CONSULTATION 10/17/2016 REASON FOR CONSULTATION End-stage renal disease on hemodialysis for management. HISTORY OF PRESENT ILLNESS This is an 81-year-old female with a past medical history of end-stage renal disease on hemodialysis three times per week, history of hypertension, cerebrovascular accident, underlying dementia, hypothyroidism who was admitted because of the swelling of the right arm. The patient has a history of right brachial axillary AV graft done in the past and she was admitted here in June and at that time she had surgery of the right arm done and the right brachial axillary AV graft was done. Patient has been on hemodialysis and following with Dr. Tristen Smalls and she has been getting dialysis Monday, and Monday. Most of the history was taken from the patient's chart and some from the patient's daughter. According to the patient's daughter, the patient has increased swelling of her arms and she was admitted and underwent right axillary vein to subclavian vein bypass surgery done. Postoperatively, the patient was seen in the recovery room. She is not in acute distress. She denied any shortness of breath. She does not have any chest pain. PAST MEDICAL HISTORY 1. Hypertension 2. Ischemic heart disease 3. History of cerebrovascular accident 4. Hypothyroidism 5. Chronic anemia 6. End-stage renal disease on hemodialysis. PAST SURGICAL HISTORY History of right arm surgery for AV fistula. REVIEW OF SYSTEMS The review of the systems is limited since the patient is not answering most of the questions. She denies any shortness of breath. No chest pain. No palpitation. No headache or dizziness. No abdominal pain or nausea or vomiting. SOCIAL HISTORY No history of smoking or alcoholism. FAMILY HISTORY Noncontributory ALLERGIES She has no known drug allergies. MEDICATIONS Currently she is on: 1. Famotidine 10 mg b.i.d. 2. Catapres 0.1 mg b.i.d. 3. Amlodipine 10 mg once a day 4. Folic acid 1 mg daily 5. Neurontin 100 mg once an office 6. Lopressor 25 mg daily 7. Pravachol 18 grams once a day 8. Synthroid 100 mcg daily 9. Sensipar 30 mg q.h.s. 10. Heparin 5000 subcu q. 8-hour 11. Insulin aspart sliding scale PHYSICAL EXAM On examination, the patient is awake, alert. She is not fully oriented, not in acute distress. VITAL SIGNS: Her last blood pressure is 137/63 temperature is 98.1, oxygen saturation on room air 98-100%. HEAD, EYES, EARS, NOSE, AND THROAT: Pupils equally reacting to light. Nonicteric sclera. Conjunctivae normal. Normal. NECK: Supple. JVD not elevated. The patient has swelling in the right arm and there is a bruit in the right upper arm. HEART: S1 and S2 regular rhythm. LUNGS: She has bilateral decreased air entry with few rhonchi bilaterally. EXTREMITIES: She has 1+ leg edema. INVESTIGATIONS WBC count is 4.8, hemoglobin 11.3, platelet count of 209, neutrophils 44.8%. Sodium 139, potassium 3.6, chloride 103, bicarb 26.7, BUN 28, creatinine 4.9, calcium 8.7, INR 1.1. IMAGING STUDIES The patient had a chest x-ray done which shows no evidence of pneumothorax and a central line in position. ASSESSMENT/PLAN 1. Post right axillary to subclavian vein bypass surgery 2. End-stage renal disease on hemodialysis 3. Hypertension 4. Anemia 5. History of cerebrovascular accident 6. Hypothyroidism The patient has a right arm bypass surgery done. She still has some swelling. There is no acute urgent need for dialysis. Her blood pressure is stable and the potassium was normal. I will arrange for her hemodialysis tomorrow. Discussed with the patient's daughter. Her hemoglobin is 11.3. I will give her low-dose Epogen with dialysis. Thank you for the consultation and I will follow the patient while she is in the hospital. MD CARLOS Ocampo/KHALIF /6:08 PM /9:23 AM
[2016-10-18] MEDS: LEVOTHYROXINE SODIUM 100 MCG TAB PO SCH (11:06)
[2016-10-18] MEDS: FOLIC ACID 1 MG TAB PO SCH (11:06)
[2016-10-18] MEDS: FAMOTIDINE 20 MG TAB PO SCH ×2 (11:07→22:37)
[2016-10-18 11:17] LABS: HEMATOCRIT 31.5 % (35.0-46.0); MEAN CORPUSCULAR HEMOGLOBIN 30.9 PG (27.0-34.0); MEAN CORPUSCULAR HGB CONC 34.4 % (32.0-36.0); PLATELET COUNT 170 TH/MM3 (150-450); RED CELL DISTRIBUTION WIDTH 15.9 % (11.6-17.2); REVIEW FLAG FINAL; WHITE BLOOD COUNT 5.8 TH/MM3 (4.0-11.0)
[2016-10-18 11:29] LABS: BICARBONATE 25.1 MEQ/L (21.0-32.0); POTASSIUM 3.9 MEQ/L (3.5-5.1)
[2016-10-18] MEDS: HEPARIN SODIUM - SQ 10,000 UNITS/ML VIAL SQ SCH ×2 (13:00→22:37)
--- NOTE | 2016-10-18 16:54 | HHI.NPPN ---
Subjective History of Present Illness 81-year-old female with a past medical history of end-stage renal disease on hemodialysis three times per week, history of hypertension, cerebrovascular accident, underlying dementia, hypothyroidism who was admitted because of the swelling of the right arm. The patient has a history of right brachial axillary AV graft done. Additional Remarks Patient seen during HD, has mild pain at the site of the surgery, no SOB. Review of Systems General Constitutional: Fatigue Cardiovascular Cardiac: LOW Objective Data Data 10/17/16 10/18/16 18:59 06:59 Intake Total 250 ml 50 ml Output Total 50 ml 0 ml Balance 200 ml 50 ml Intake Oral 50 ml Other 250 ml Output Urine Total 0 ml Estimated Blood Loss 50 ml # Voids 1 Vital Signs Date Time Temp Pulse Resp B/P Pulse Ox O2 Delivery O2 Flow Rate FiO2 10/18/16 16:17 77 10/18/16 15:00 78 10/18/16 15:00 77 18 93 10/18/16 14:55 74 10/18/16 13:00 75 10/18/16 12:27 98.5 82 18 134/87 93 10/18/16 12:26 78 10/18/16 11:30 97.8 66 17 122/58 97 Room Air 10/18/16 10:00 69 15 106/55 100 Room Air 10/18/16 07:30 77 15 132/66 100 Room Air 10/18/16 04:00 66 17 130/61 96 Room Air 10/18/16 00:00 67 17 130/76 98 Room Air 10/17/16 20:13 20 10/17/16 20:00 63 13 140/63 98 Room Air 10/17/16 19:00 61 21 136/63 94 Room Air 10/17/16 18:00 63 21 137/63 98 Room Air 10/17/16 17:00 62 13 130/60 100 Nasal Cannula 2 -: 10/18/16 1009 10/18/16 1009 Physical Exam General Appearance: No Acute Distress, Comfortable, Anxious Eyes Eye Exam: Pupils Equal Neck Neck Exam: Neck Supple Pulmonary Resp Exam: Rhonchi, Decreased Bases, Diminished Breath Sounds Cardiology CV Exam: Regular, Normal Sinus Rhythm Gastrointestinal/Abdomen GI Exam: Soft, Non-Tender, Bowel Sounds Present Extremeties Extremities Exam: Trace Edema Neurologic Neuro Exam: Alert, Awake Psychiatric Psych Exam: Appropriate Responses Assessment/Plan Assessment Summary: Anemia of CKD, Hypertension, End Stage Renal Disease Problem List: (1) Anemia (2) Hypertension (3) ESRD (end stage renal disease) Plan Patient has Rt. axillary -Brachial vein bypass. Now on HD. AVF is functioning well, has good BF. BP is stable, remove fluid as tolerated. Problem Qualifiers (1) Hypertension: Qualified Code: I10 - Essential hypertension Sulema Treviño MD Oct 18, 2016 16:54
[2016-10-18] MEDS: CINACALCET HYDROCHLORIDE 30 MG TAB PO SCH (22:36)
[2016-10-19] VITALS (9 sets, daily range): BP systolic 113–136; BP diastolic 56–83; PULSE 75–84; RESP 16–18; TEMP 98.1–98.7; O2SAT 92–98
[2016-10-19] MEDS: INSULIN ASPART SUPPLEMENTAL SCALE SQ SCH (06:36)
[2016-10-19] MEDS: LEVOTHYROXINE SODIUM 100 MCG TAB PO SCH (06:43)
[2016-10-19] MEDS: HEPARIN SODIUM - SQ 10,000 UNITS/ML VIAL SQ SCH (06:43)
--- NOTE | 2016-10-19 07:51 | PD.VS.PN ---
Subjective POD #: 2 Procedure(s): R axillary-subclavian vein bypass with 8mm PTFE Subjective/Hospital Course c/o pain in upper chest near incision but tolerable R UE less swollen already Geoffrey HD Objective Vitals/I&O Date Time Temp Pulse Resp B/P Pulse Ox O2 Delivery O2 Flow Rate FiO2 10/19/16 06:00 76 10/19/16 05:00 75 10/19/16 04:00 92 Nasal Cannula 3.00 10/19/16 04:00 75 10/19/16 04:00 98.1 80 18 136/56 92 10/19/16 03:00 79 10/19/16 02:00 76 10/19/16 01:00 77 10/19/16 00:00 84 10/19/16 00:00 98.7 83 16 113/83 94 10/19/16 00:00 94 Nasal Cannula 3.00 10/18/16 23:00 82 10/18/16 22:00 97 Nasal Cannula 3.00 10/18/16 22:00 99.5 89 16 125/68 97 10/18/16 22:00 88 10/18/16 21:00 82 10/18/16 20:00 82 10/18/16 19:00 86 10/18/16 18:55 97 10/18/16 17:40 100 10/18/16 17:30 95 10/18/16 16:17 77 10/18/16 15:00 78 10/18/16 15:00 77 18 93 10/18/16 14:55 74 10/18/16 13:00 75 10/18/16 12:27 98.5 82 18 134/87 93 10/18/16 12:26 78 10/18/16 11:30 97.8 66 17 122/58 97 Room Air 10/18/16 10:00 69 15 106/55 100 Room Air 10/19/16 10/19/16 10/19/16 07:00 15:00 23:00 Intake Total 240 ml Balance 240 ml Exam: R UE markedly less swollen Pulses: + Thrill R UE Laboratory Laboratory Tests Test 10/18/16 10:09 White Blood Count 5.8 Red Blood Count 3.50 Hemoglobin 10.8 Hematocrit 31.5 Mean Corpuscular Volume 90.0 Mean Corpuscular Hemoglobin 30.9 Mean Corpuscular Hemoglobin 34.4 Concent Red Cell Distribution Width 15.9 Platelet Count 170 Mean Platelet Volume 8.9 Sodium Level 136 Potassium Level 3.9 Chloride Level 102 Carbon Dioxide Level 25.1 Anion Gap 9 Blood Urea Nitrogen 37 Creatinine 6.16 Estimat Glomerular Filtration 8 Rate Random Glucose 145 Calcium Level 8.7 Assessment and Plan Plan POD#2 s/p central vein bypass; patent and pt looks great D/C later today Discharge Planning tomorrow (POD#2) Regulo Ricks MD Oct 19, 2016 07:51
--- NOTE | 2016-10-19 08:40 | PD.VS.DC ---
Discharge Summary Admission Date: Oct 17, 2016 at 11:14 Discharge Date: Oct 19, 2016 Admission Diagnosis: (1) ESRD (end stage renal disease) Discharge Diagnosis: (1) ESRD (end stage renal disease) Status: Chronic Brief History from admission 81 yo female with ESRD, s/p R UE brach-ax with bovine pericardium. C/o debilitating arm swelling and a recent fistulogram showed axillary vein occlusion, not amenable to endovascular therapy. Procedure(s): R axillary-subclavian vein bypass with 8mm PTFE Significant Findings GENERAL: Alert in nad SKIN: Warm and dry. MUSCULOSKELETAL: No Edema. RUE warm/ + palpable thrill near AVF Laboratory Tests Test 10/17/16 10/17/16 10/18/16 13:11 18:23 10:09 Red Blood Count 3.71 MIL/MM3 3.50 MIL/MM3 (4.00-5.30) (4.00-5.30) Hemoglobin 11.3 GM/DL 10.8 GM/DL (11.6-15.3) (11.6-15.3) Hematocrit 34.0 % 31.5 % (35.0-46.0) (35.0-46.0) Monocytes (%) (Auto) 12.6 % (0.0-8.0) Eosinophils (%) (Auto) 4.5 % (0.0-4.0) Prothrombin Time 11.7 SEC (9.8-11.6) Blood Urea Nitrogen 28 MG/DL (7-18) 28 MG/DL (7-18) 37 MG/DL (7-18) Creatinine 4.91 MG/DL 4.98 MG/DL 6.16 MG/DL (0.50-1.00) (0.50-1.00) (0.50-1.00) Estimat Glomerular Filtration 10 ML/MIN (>89) 10 ML/MIN (>89) 8 ML/MIN (>89) Rate Random Glucose 132 MG/DL 145 MG/DL (74-106) (74-106) Hospital Course: 81 yo female with ESRD, s/p R UE brach-ax with bovine pericardium. C/o debilitating arm swelling and a recent fistulogram showed axillary vein occlusion Pt s/p R axillary-subclavian vein bypass with 8mm PTFE Pt doing well post op w/o complications Allergies Coded Allergies Type Severity Reaction Last Updated Verified No Known Allergies 10/17/16 No Recent Impressions Chest X-Ray 10/17/16 0000 Signed Impressions: Service Date/Time: Monday, October 17, 2016 17:30 - CONCLUSION: 1. Cardiomegaly. Minimal basal atelectasis. Left central line tip in superior vena cava. Kleber Gavin MD Chest X-Ray 10/17/16 0000 Signed Impressions: Service Date/Time: Monday, October 17, 2016 15:36 - CONCLUSION: Malpositioned central line. No evidence of pneumothorax. Danny Nieto MD / 05:59 17:59 05:59 17:59 05:59 17:59 Intake Total 250 ml 50 ml 740 ml 240 ml Output Total 50 ml 0 ml 2000 ml Balance 200 ml 50 ml -1260 ml 240 ml Intake Oral 50 ml 740 ml 240 ml IV Total 0 ml 0 ml Other 250 ml Output Urine Total 0 ml 0 ml Hemodialysis 2000 ml Estimated Blood Loss 50 ml # Voids 1 0 1 # Bowel Movements 0 1 Laboratory Tests Test 10/17/16 10/17/16 10/18/16 13:11 18:23 10:09 White Blood Count 4.8 TH/MM3 5.8 TH/MM3 Red Blood Count 3.71 MIL/MM3 3.50 MIL/MM3 Hemoglobin 11.3 GM/DL 10.8 GM/DL Hematocrit 34.0 % 31.5 % Mean Corpuscular Volume 91.6 FL 90.0 FL Mean Corpuscular Hemoglobin 30.6 PG 30.9 PG Mean Corpuscular Hemoglobin 33.4 % 34.4 % Concent Red Cell Distribution Width 16.0 % 15.9 % Platelet Count 209 TH/MM3 170 TH/MM3 Mean Platelet Volume 8.4 FL 8.9 FL Neutrophils (%) (Auto) 44.8 % Lymphocytes (%) (Auto) 37.4 % Monocytes (%) (Auto) 12.6 % Eosinophils (%) (Auto) 4.5 % Basophils (%) (Auto) 0.7 % Neutrophils # (Auto) 2.1 TH/MM3 Lymphocytes # (Auto) 1.8 TH/MM3 Monocytes # (Auto) 0.6 TH/MM3 Eosinophils # (Auto) 0.2 TH/MM3 Basophils # (Auto) 0.0 TH/MM3 CBC Comment DIFF FINAL Differential Comment Prothrombin Time 11.7 SEC Prothromb Time International 1.1 RATIO Ratio Sodium Level 139 MEQ/L 140 MEQ/L 136 MEQ/L Potassium Level 3.6 MEQ/L 3.8 MEQ/L 3.9 MEQ/L Chloride Level 103 MEQ/L 105 MEQ/L 102 MEQ/L Carbon Dioxide Level 26.7 MEQ/L 22.3 MEQ/L 25.1 MEQ/L Anion Gap 9 MEQ/L 13 MEQ/L 9 MEQ/L Blood Urea Nitrogen 28 MG/DL 28 MG/DL 37 MG/DL Creatinine 4.91 MG/DL 4.98 MG/DL 6.16 MG/DL Estimat Glomerular Filtration 10 ML/MIN 10 ML/MIN 8 ML/MIN Rate Random Glucose 98 MG/DL 132 MG/DL 145 MG/DL Calcium Level 8.7 MG/DL 8.5 MG/DL 8.7 MG/DL Blood Type O POSITIVE Antibody Screen NEGATIVE Procedure Category Date Status Time Complete Blood Count LAB 10/17/16 Complete With Diff 11:37 Basic Metabolic Panel LAB 10/17/16 Complete (Bmp) 11:37 Prothrombin Time / LAB 10/17/16 Complete Inr (Pt) 11:37 Type And Screen BBK 10/17/16 Complete 11:37 Lactated Ringer's MED 10/17/16 In Process 1000 Ml Inj (Lr 1000 M 12:00 Sodium Chlorid 0.9% MED 10/17/16 In Process 500 Ml Inj (Ns 500 M 12:00 Metoprolol Tartrate MED 10/17/16 In Process (Lopressor) 12:00 Povidone Iod 5% MED 10/17/16 In Process Antisepsis Kit 12:00 Chlorhexidine 2% MED 10/17/16 In Process Cloth (Chlorhexidine 12:00 Insulin Human Regular MED 10/17/16 In Process Inj (Novolin R Inj 12:00 Admit To Inpatient ADMITTING 10/17/16 Transmitted Code Status CODE 10/17/16 Transmitted 12:33 Vital Signs (Adult) ELA 10/17/16 Complete 12:33 Instrument Installer / ELA 8/7/17 In Process Telemetry 12:33 Activity Oob Ad Erma ELA 10/18/16 In Process 12:33 Activity Bed Rest ELA 10/17/16 In Process 12:33 Precautions ELA 10/17/16 In Process 12:33 Diet Heart Healthy DIET 10/17/16 Transmitted Dinner Basic Metabolic Panel LAB 10/17/16 Complete (Bmp) 17:00 Basic Metabolic Panel LAB 10/18/16 Complete (Bmp) 06:00 Cbc No Diff, Includes LAB 10/18/16 Complete Plts 06:00 Case Management CONS 10/17/16 Transmitted Consult Consult Nephrology CONS 10/17/16 Transmitted Consult Pt Eval & PT 10/17/16 Logged Treat 12:33 Oxycodone (Roxicodone) MED 10/17/16 In Process 12:45 Hydromorphone MED 10/17/16 In Process (Dilaudid) 12:45 Morphine Inj MED 10/17/16 In Process (Morphine Inj) 12:45 Inpatient ADMITTING 10/17/16 Transmitted Certification Amlodipine (Norvasc) MED 10/18/16 In Process 09:00 Cinacalcet (Sensipar) MED 10/17/16 In Process 21:00 Clonidine (Catapres) MED 10/17/16 In Process 21:00 Folic Acid (Folate) MED 10/18/16 In Process 09:00 Gabapentin (Neurontin) MED 10/18/16 In Process 09:00 Levothyroxine MED 10/18/16 In Process (Synthroid) 06:00 Metoprolol Tartrate MED 10/18/16 In Process (Lopressor) 09:00 Famotidine (Pepcid) MED 10/17/16 In Process 21:00 Pravastatin MED 10/18/16 In Process (Pravachol) 09:00 Blood Glucose Goal ELA 10/17/16 In Process (Criteria) 12:36 Hypoglycemia 70 Mg/Dl ELA 10/17/16 In Process Or < 12:36 Notify Kalpana MAHMOOD 10/17/16 In Process 12:36 Dextrose 50% In [place] MED 10/17/16 In Process (Vial) Inj (D50w (Vi 12:45 Glucagon Inj MED 10/17/16 In Process (Glucagon Inj) 12:45 Insulin Aspart MED 10/17/16 In Process Supplemtl Scale 16:00 Heparin Inj (Heparin MED 10/17/16 Complete Inj) 12:57 Vancomycin Inj MED 10/17/16 Complete (Vancomycin Inj) 12:58 Thrombin Top [place] MED 10/17/16 Complete (Thrombin Top [place]) 12:58 (Hub Use Only)Inp Phy CONS 10/17/16 Transmitted Cons/Ref Heparin Inj (Heparin MED 10/17/16 Complete Inj) 14:00 Pill Splitter (Pill MED 10/17/16 In Process Splitter) 14:15 Am [facility] Complete Bupivacaine Pf 0.5% MED 10/17/16 Complete Inj (Marcaine Pf 0.5 14:33 *Morphine Inj MED 10/17/16 Complete (*Morphine Inj 15:26 Chest, Single Ap RADDIAG 10/17/16 Resulted Misc Nursing MED 10/17/16 Complete Information 15:24 *Morphine Inj MED 10/17/16 Complete (*Morphine Inj 15:42 Fentanyl Inj MED 10/17/16 Complete (Fentanyl Inj) 15:57 Heparin Inj (Heparin MED 10/18/16 In Process Inj) 14:00 Chest, Single Ap RADDIAG 10/17/16 Resulted Blood Flow Rate ELA 10/17/16 In Process 18:14 Dialysate Flow Rate ELA 10/17/16 In Process 18:14 Dialyzer ELA 10/17/16 In Process 18:14 Concentrate ELA 10/17/16 In Process 18:14 Acid Concentrate ELA 10/17/16 In Process 18:14 Length Of Dialysis ELA 10/17/16 In Process 18:14 Frequency Of Dialysis ELA 10/17/16 In Process 18:14 Dialysis Obtain ELA 10/17/16 In Process 18:14 Needle Size ELA 10/17/16 In Process 18:14 Dialysis Schedule ELA 10/17/16 In Process 18:14 Resp Oxygen Jame C RSP 10/17/16 Logged Titrat 1-4 L Dialysis Weight ELA 10/17/16 In Process 18:14 ^ Obtain As Needed ELA 10/17/16 In Process 18:14 Sodium Chlor 0.9% MED 10/17/16 In Process 1000 Ml Inj (Ns 1000 M 18:14 Heparin Inj (Heparin MED 10/17/16 In Process Inj) 18:15 Sodium Chlor 0.9% MED 10/17/16 In Process 1000 Ml Inj (Ns 1000 M 18:14 Sodium Chlor 0.9% MED 10/17/16 In Process 1000 Ml Inj (Ns 1000 M 18:14 Mannitol Inj MED 10/17/16 In Process (Mannitol Inj) 18:15 Albumin 25% Inj MED 10/17/16 In Process (Albumin 25% Inj) 18:15 Sodium Chloride 0.9% MED 10/17/16 In Process Flush (Ns Flush) 18:15 Heparin Inj (Heparin MED 10/17/16 In Process Inj) 18:15 Gentamicin (Dialysis) MED 10/17/16 In Process Inj (Gentamicin (D 18:15 Ondansetron Inj MED 10/17/16 In Process (Zofran Inj) 18:15 Acetaminophen MED 10/17/16 In Process (Tylenol) 18:15 Diphenhydramine MED 10/17/16 In Process (Benadryl) 18:15 Nitroglycerin Sl MED 10/17/16 In Process (Nitrostat Sl) 18:15 Clonidine (Catapres) MED 10/17/16 In Process 18:15 Epoetin Lucio Inj MED 10/17/16 In Process (Epogen Inj) 18:15 Gelatin 12 Mm/7 Mm MED 10/17/16 In Process Top (Gelfoam 12 Mm/7 18:15 Vascular Poc IMGUS 10/17/16 Taken Ultrasound Vascular Access Team ELA 10/17/16 In Process Consult/P 19:24 Class Iv Pacu Ea 30 [facility] 10/17/16 Complete MIN General/Pacu [facility] 10/17/16 Complete Post Anesthesia Oxygen [facility] 10/17/16 Complete Pacu Cpcu Holding [facility] 10/17/16 Complete Hourly Pacu Cpcu Holding [facility] 10/18/16 Complete Hourly Attending Discharge DISCHARGE 10/19/16 Transmitted Order Vital Signs Date Time Temp Pulse Resp B/P Pulse Ox O2 Delivery O2 Flow Rate FiO2 10/19/16 06:00 76 10/19/16 05:00 75 10/19/16 04:00 92 Nasal Cannula 3.00 10/19/16 04:00 75 10/19/16 04:00 98.1 80 18 136/56 92 10/19/16 03:00 79 10/19/16 02:00 76 10/19/16 01:00 77 10/19/16 00:00 84 10/19/16 00:00 98.7 83 16 113/83 94 10/19/16 00:00 94 Nasal Cannula 3.00 10/18/16 23:00 82 10/18/16 22:00 97 Nasal Cannula 3.00 10/18/16 22:00 99.5 89 16 125/68 97 10/18/16 22:00 88 10/18/16 21:00 82 10/18/16 20:00 82 10/18/16 19:00 86 10/18/16 18:55 97 10/18/16 17:40 100 10/18/16 17:30 95 10/18/16 16:17 77 10/18/16 15:00 78 10/18/16 15:00 77 18 93 10/18/16 14:55 74 10/18/16 13:00 75 10/18/16 12:27 98.5 82 18 134/87 93 10/18/16 12:26 78 10/18/16 11:30 97.8 66 17 122/58 97 Room Air 10/18/16 10:00 69 15 106/55 100 Room Air 10/18/16 07:30 77 15 132/66 100 Room Air 10/18/16 04:00 66 17 130/61 96 Room Air 10/18/16 00:00 67 17 130/76 98 Room Air 10/17/16 20:13 20 10/17/16 20:00 63 13 140/63 98 Room Air 10/17/16 19:00 61 21 136/63 94 Room Air 10/17/16 18:00 63 21 137/63 98 Room Air 10/17/16 17:00 62 13 130/60 100 Nasal Cannula 2 10/17/16 16:15 59 13 124/59 99 Nasal Cannula 2 10/17/16 16:00 60 13 127/62 100 Nasal Cannula 2 10/17/16 15:45 65 23 139/72 100 Nasal Cannula 2 10/17/16 15:30 74 15 138/72 100 Nasal Cannula 2 10/17/16 15:27 98.1 77 25 140/76 100 Nasal Cannula 4 10/17/16 11:55 97.0 62 16 121/65 97 Discharge Condition: Good Discharge Disposition: Discharge Home Discharge Instructions: Follow up in our out patient clinic Call the office with any questions or concerns Leave post op surgical sites open to air [facility] [place] [phone] Any questions or concerns: Call [facility] Heart [facility] V[facility] Surgery at [facility] [phone] Stefania Roe Oct 19, 2016 08:40
[2016-10-19] MEDS: cloNIDine HCL 0.1 MG TAB PO SCH (09:56)
[2016-10-19] MEDS: PRAVASTATIN SOD 80 MG TAB PO SCH (09:56)
[2016-10-19] MEDS: FOLIC ACID 1 MG TAB PO SCH (09:56)
[2016-10-19] MEDS: METOPROLOL TARTRATE 25 MG TAB PO SCH (09:56)
[2016-10-19] MEDS: GABAPENTIN 100 MG CAP PO SCH (09:56)
[2016-10-19] MEDS: FAMOTIDINE 20 MG TAB PO SCH (09:56)
--- NOTE | 2016-10-19 11:56 | MP ---
cc: NEREYDA RICKS MD DATE OF SURGERY: 10/17/2016 PREOPERATIVE DIAGNOSIS Central vein occlusion right upper extremity, patent arteriovenous graft. POSTOPERATIVE DIAGNOSIS Central vein occlusion right upper extremity, patent arteriovenous graft. PROCEDURE Jump graft from the axillary vein outflow to the subclavian vein with 8 mm PTFE. ATTENDING SURGEON Nereyda Ricks MD ANESTHESIA General. INDICATIONS Ms. Hernadez is an 81-year-old lady who has end-stage renal disease, currently on dialysis. She had a brachial artery to axillary vein arteriovenous graft several months ago, this has been used without difficulty but the patient has had refractory arm swelling. A fistulogram about a week ago showed the patient had occluded axillary vein that was not amendable to endovascular therapy. She was offered a surgical revision, essentially with a jump graft from the previous graft at the axillary vein level up to subclavian vein. DESCRIPTION OF PROCEDURE Informed consent was obtained from the patient. She was taken to the operating room and placed supine on the operating table and appropriate time-out was taken to ensure the patient's identity, the operative site and planned procedure. A gram of vancomycin was initiated prior to skin incision and will be discontinued after single preoperative dose. Vancomycin was chosen because of the patient's end-stage renal disease. Everyone in the room agreed with the time-out and we proceeded. Her right arm, axilla and chest were prepped and draped. An incision was made below the clavicle, carried down to subcutaneous tissue with electrocautery. The clavicular fascia was incised with electrocautery and the subclavian vein was identified and dissected free circumferentially and encircled with a vessel loop. The axillary incision was then opened and the previous fistula was identified and dissected free for several centimeters. A blunt tunnel was then created between these two and 8 mm ringed PTFE was placed between these. The patient was systemically heparinized with 5000 units of IV heparin. Proximal and distal control of the outflow aspect of the graft were obtained with profunda clamps and a longitudinal arteriotomy was made with 11 blade and extended with [place] scissors. The PTFE was sewn end-to-side with running 5-0 Asher-Alex suture. At the completion it was flushed and noted to be hemostatic. The Cristina soft jaw was placed on the graft, proximal and distal control of subclavian vein were obtained with profunda clamps and a longitudinal venotomy was made with 11 blade and extended with [place] scissors. The graft was spatulated after being cut to appropriate length and sewn end-to-side to the subclavian vein with running 5-0 Asher-Alex suture. At the completion it was flushed and noted to be hemostatic. However, there was not a great thrill in the fistula and upon re-exploration of the axilla there was a kink in the graft, as such the graft was clamped with profunda clamps. The new 8 mm PTFE was clamped with Cristina soft jaw and anastomosis was disassembled. The distal aspect of the break axillary graft was oversewn with 4-0 and the proximal anastomosis of the new jump graft was then configured in an end-to-end fashion with running 5-0 Asher-Alex suture. At the completion it was flushed and noted to be hemostatic. There was an excellent thrill in the graft, nice Doppler signal in the wrist. The heparin was reversed with protamine and the wounds were irrigated, infiltrated with Marcaine and closed with 2-0 Polysorb, 3-0 Polysorb and 4-0 Monocryl. The sponge and needle counts were correct at the end of the case. I was present and scrubbed and performed the entire procedure. MD JONEL Arauz/EFREN /9:49 PM /11:34 AM
== END 2016-10-19 11:17 | disposition home or self-care (01) | DRG 252 ==
LOC: HSDI 10-17 11:14 → EDSTATUS 10-17 12:00 → HPAC 10-17 19:30 → HCIS 10-18 13:12
PROVIDERS: ADMIT Surgery; ATTEND Surgery
PROC: 05WY0JZ Revision of Synthetic Substitute in Upper Vein, Open Approach (ICD-10-PCS; principal; 2016-10-17 12:48)
PROC: 5A1D00Z (ICD-10-PCS; 2016-10-18)
DX: T82.858A Stenosis of other vascular prosthetic devices, implants and grafts, initial encounter (principal); N18.6 End stage renal disease; I12.0 Hypertensive chronic kidney disease with stage 5 chronic kidney disease or end stage renal disease; F03.90 Unspecified dementia, unspecified severity, without behavioral disturbance, psychotic disturbance, mood disturbance, and anxiety; I69.351 Hemiplegia and hemiparesis following cerebral infarction affecting right dominant side; D63.1 Anemia in chronic kidney disease; E11.22 Type 2 diabetes mellitus with diabetic chronic kidney disease; E03.9 Hypothyroidism, unspecified; I25.9 Chronic ischemic heart disease, unspecified; Y83.8 Other surgical procedures as the cause of abnormal reaction of the patient, or of later complication, without mention of misadventure at the time of the procedure; Z79.4 Long term (current) use of insulin; Z99.2 Dependence on renal dialysis
CPT/HCPCS: 71010; 76937; 80048; 82948; 85025; 85027; 85610; 86850; 86900; 86901; 90935; 96374; C1768; J1644; J1815; J2270; J2370; J2720; J3010; J3370; J7050